=== PATIENT | female | born 1970 | race Caucasian/White ===

== ENCOUNTER 2016-08-05 18:25 | Emergency (ER) | payer OTHER | END 2016-08-06 00:28 | disposition home or self-care (01) | LOC: ER 18:25 | DX: M54.2 Cervicalgia (principal); J02.9 Acute pharyngitis, unspecified; B99.8 Other infectious disease; R50.9 Fever, unspecified; G89.29 Other chronic pain; M54.9 Dorsalgia, unspecified; F41.9 Anxiety disorder, unspecified; F17.210 Nicotine dependence, cigarettes, uncomplicated; Z79.899 Other long term (current) drug therapy ==